=== PATIENT | male | born 1995 | race Two or more races ===

== ENCOUNTER 2018-08-02 16:58 | Emergency (ER) | payer MEDICAID ==
[2018-08-02] MEDS ORDERED: IBUPROFEN 600 MG TABLET PO ONE (18:34)
--- NOTE | 2018-08-02 18:40 | ER Document Report ---
HPI - HPI Patient complains to provider of: cough Pain Level: 2 Context: Pt. is a 23-year-old male presenting to the emergency department complaining of cough and congestion for the last 4 days. Patient is denying fever, nausea, vomiting, diarrhea. Pt stated at times he has a headache, currently has one. Stated his girlfriend is also sick with similar symptoms and was seen in the ED this morning. Past medical history: None Medications: None Allergies: Amoxicillin Past Medical History - General Information source: Patient - Social History Smoking Status: Never Smoker Lives with: Family Family History: Reviewed & Not Pertinent Vertical Provider Document - CONSTITUTIONAL Agree With Documented VS: Yes Notes: GENERAL: Alert, interacts well. No acute distress. Nontoxic HEAD: Normocephalic, atraumatic. No frontal or maxillary sinus tenderness EYES: Pupils equal, round, and reactive to light. Extraocular movements intact. ENT: Oral mucosa moist, tongue midline. Nares patent swollen turbinates bilaterally, TM's intact, nonerythematous nonbulging. Pharynx within normal limits, no palatal petechiae or exudate noted. NECK: Full range of motion. Supple. Trachea midline. No lymphadenopathy appreciated LUNGS: Clear to auscultation bilaterally, no wheezes, rales, or rhonchi. No respiratory distress. HEART: Regular rate and rhythm. No murmur ABDOMEN: Soft, non-tender. Non-distended. Bowel sounds present in all 4 quadrants. EXTREMITIES: Moves all 4 extremities spontaneously. No edema, normal radial and dorsalis pedis pulses bilaterally. No cyanosis. BACK: no cervical, thoracic, lumbar midline tenderness. No saddle anesthesia, normal distal neurovascular exam. NEUROLOGICAL: Alert and oriented x3. Normal speech. cranial nerves II through XII grossly intact PSYCH: Normal affect, normal mood. SKIN: Warm, dry, normal turgor. No rashes or lesions noted. - INFECTION CONTROL TRAVEL OUTSIDE OF THE [place] IN LAST 30 DAYS: No Course - Re-evaluation Re-evalutation: 08/02/18 18:38 Likely viral at this time. Discussed symptomatic treatment and follow-up with primary care provider. - Vital Signs Vital signs: Temp Pulse Resp BP Pulse Ox 97.9 F 86 18 118/52 L 98 08/02/18 17:17 08/02/18 17:17 08/02/18 17:17 08/02/18 17:17 08/02/18 17:17 Discharge - Discharge Clinical Impression: Upper respiratory infection Qualifiers: URI type: unspecified viral URI Qualified Code(s): J06.9 - Acute upper respiratory infection, unspecified Condition: Stable Disposition: HOME, SELF-CARE Instructions: Upper Respiratory Illness ([facility]), Viral Syndrome ([facility]) Additional Instructions: As we discussed you have been seen and treated for an upper respiratory infection. These are caused by viruses. Unfortunately viruses do not respond to antibiotics so they are not warranted at this time. Please take prescription medications as prescribed. Please also take [id number] Tylenol and Motrin for body aches or fever. Make an appointment with your primary care provider within the next 24 hours. Return to the emergency room for any other concerning symptoms Prescriptions: Benzonatate [Tessalon Perles 100 mg Capsule] 100 mg PO Q8HP PRN #40 capsule PRN Reason: Mometasone Furoate [Nasonex] 1 spray NS Q12 #1 spray.pump
[2018-08-02 19:10] VITALS: BP 108/51
== END 2018-08-02 19:10 | disposition home or self-care (01) ==
LOC: ER 16:58
DX: J06.9 Acute upper respiratory infection, unspecified (principal); B97.89 Other viral agents as the cause of diseases classified elsewhere; R05 Cough; R51 Headache; Z88.0 Allergy status to penicillin
CPT/HCPCS: 99283; J3490